=== PATIENT | female | born 1960 | race Caucasian/White ===

== ENCOUNTER → 2018-03-10 | Outpatient (CLI) | payer BC ==
[~2018-03-10] MED LIST: LEVSOD125 PO; PROG100 PO
== END | disposition home or self-care (01) ==
LOC: LAB 08:30 → LAB SHORT 08:30
DX: R30.0 Dysuria (principal)
CPT/HCPCS: 87077; 87086; 87186

== ENCOUNTER → 2018-06-04 | Outpatient (CLI) | payer BC | END | disposition home or self-care (01) | LOC: LAB SHORT 12:10 → PLD 12:10 | DX: L82.1 Other seborrheic keratosis (principal); D22.71 Melanocytic nevi of right lower limb, including hip | CPT/HCPCS: 88305 ==

== ENCOUNTER → 2022-04-05 | Outpatient (CLI) | payer BC | LOC: LAB SHORT 12:26 | DX: L81.4 Other melanin hyperpigmentation (principal) | CPT/HCPCS: 88305 ==